=== PATIENT | male | born 1985 | race Caucasian/White ===

== ENCOUNTER 2018-08-28 14:46 | Emergency (ER) | payer BC, OTHER ==
[2018-08-28 15:01] VITALS: BP 121/77
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
== END 2018-08-28 16:15 | disposition home or self-care (01) ==
LOC: UCEAST 14:46
DX: S16.1XXA Strain of muscle, fascia and tendon at neck level, initial encounter (principal); V89.2XXA Person injured in unspecified motor-vehicle accident, traffic, initial encounter; Y92.410 Unspecified street and highway as the place of occurrence of the external cause; F17.290 Nicotine dependence, other tobacco product, uncomplicated
CPT/HCPCS: 72125; 99212; G0463